=== PATIENT | female | born 1945 | race African-American/Black ===

== ENCOUNTER 2016-12-30 23:11 | Emergency (ER) | payer OTHER ==
[~2016-12-30 23:11] MED LIST: ALPHAGAN P0.1 % OPH; ASAB PO; COZAAR100 MG PO; CRESTOR10 PO; DIABETA5 PO; DIOV160 PO; DORZOL/TIMOL1 ML OP; FERROUS SULF325 M1 PO; FLUOROMETHOLONE OPH; GLUCOTROL5 PO; HYZAAR 100/25 T1 TAB PO; INSNOV7030 SC; IRON INJECTION IM; IRON325 MG PO; LANTUS SC; LANTUSCART SC; LEVEMIR SC; NORV25 PO; PRILOSEC10 MG PO; PROTONIX PO; PROTONIX20 MG PO; SPIRO25 PO; TRAVATAN Z0.004 % OPH; [UNRECOGNIZED DRUG - OTHER] OPH
[2016-12-30 23:21] LABS: BASOPHILS 0.5 %; BASOPHILS ABSOLUTE 0.05 10/3/uL (0.0-0.16); EOSINOPHILS 3.4 %; EOSINOPHILS ABSOLUTE 0.37 10/3/uL (0.0-0.53); IMMATURE GRANULOCYTES 0.4 %; IMMATURE GRANULOCYTES ABSOLUTE 0.04 10/3/uL (0.0-0.11); LYMPHOCYTES 12.2 %; LYMPHOCYTES ABSOLUTE 1.31 10/3/uL (0.67-4.30); MEAN CORPUS HGB CONC 34.2 g/dL (32.0-36.0); MEAN CORPUSCULAR HEMOGLOB 32.3 pg (26.0-34.0); MEAN CORPUSCULAR VOLUME 94.6 fL (80-100); MEAN PLATELET VOLUME 13.1 fL (9.2-13.0); MONOCYTES 3.4 %; MONOCYTES ABSOLUTE 0.37 10/3/uL (0.21-1.20); NEUTROPHILS 80.1 %; NEUTROPHILS ABSOLUTE 8.59 10/3/uL (2.02-8.40); PLATELET COUNT 183 10/3/uL (150-400); RBC DISTRIBUTION WIDTH 12.8 % (12.0-16.0); RED CELL COUNT 3.71 10/6/uL (4.0-5.6); WHITE BLOOD CELLS 10.7 10/3/uL (4.5-10.5)
[2016-12-30 23:24] LABS: ER CBC TAT 0 Hrs 09 MinsNP; HEMATOCRIT 35.1 % (36.0-48.0); MANUAL DIFF NO %
[2016-12-30 23:41] LABS: ALBUMIN 3.5 G/DL (3.5-5.0); BUN (BLOOD UREA NITROGEN) 21 MG/DL (6-23); CALCIUM, SERUM 9.1 MG/DL (8.5-10.4); CHLORIDE, SERUM 108 MMOL/L (96-112); CREATININE 2.28 MG/DL (0.55-1.02); GFR AFRICAN AMERICAN 24 ML/MIN (>=60); GFR NON AFRICAN AMERICAN 21 ML/MIN (>=60); GLOBULIN 3.6 G/DL (2.5-4.1); POTASSIUM, SERUM 4.6 MMOL/L (3.5-5.3); SGPT(ALT) 14 U/L (5-65); SODIUM, SERUM 139 MMOL/L (135-148); TOTAL BILIRUBIN 0.3 MG/DL (0-1.2); TOTAL PROTEIN 7.1 G/DL (6.0-8.5)
[2016-12-30 23:42] LABS: ALKALINE PHOSPHATASE 137 U/L (45-117); CO2 (CARBON DIOXIDE) 22 MMOL/L (24-34); GLUCOSE, SERUM 298 MG/DL (60-99)
[2016-12-30 23:43] LABS: SGOT(AST) 18 U/L (5-40)
[2016-12-31 00:10] LABS: ASCORBIC ACID (UR NOT ORDER) NEG (NEG); BILIRUBIN, URINE NEGATIVE (NEG); ER URINALYSIS TAT 0 Hrs 07 Mins; KETONE, URINE NEGATIVE (NEG); LEUKOCYTE ESTERASE(NOT OR NEG (NEG); NITRITE (URINE) NEG (NEG); WBC (NOT ORDERED) (RFLEX) 7 (0-5)
[2017-05-21] MEDS ORDERED: ARICEPT5 PO (00:10)
[2017-05-21] MEDS ORDERED: HALF81 PO (00:11)
[2017-05-21] MEDS ORDERED: TRAVATAN Z 0.004% OPH (00:11)
[2017-05-21] MEDS ORDERED: ALPHAGAN P0.1 % OPH (00:11)
[2017-05-21] MEDS ORDERED: COZ25 PO (00:13)
[2017-05-21] MEDS ORDERED: TRESIBA FL200 UNIT/1 SC (00:13)
[2017-05-21] MEDS ORDERED: NORV25 PO (00:17)
[2017-05-21] MEDS ORDERED: ZOCOR10 PO (00:17)
[2017-05-21] MEDS ORDERED: VITAMIN D31000 UNIT PO (00:18)
[2017-05-21] MEDS ORDERED: OYST-CAL500 MG PO (00:19)
[2017-05-21] MEDS ORDERED: FERROUS SULF325 M1 PO (00:19)
[2017-05-25] MEDS ORDERED: REG5 PO (14:38)
[2017-05-25] MEDS ORDERED: LOP25 PO (14:39)
[2017-05-25] MEDS ORDERED: PROTONIX PO (14:39)
[2017-05-25] MEDS ORDERED: FLORASTOR250 MG PO (14:40)
[2017-05-25] MEDS ORDERED: SUCR PO (14:41)
[2017-05-25] MEDS ORDERED: LANTUS SQ (14:44)
== END 2016-12-31 01:50 | disposition home or self-care (01) ==
LOC: ER 23:11
PROVIDERS: Nurse Practitioner Acute Care
DX: M79.1 Myalgia (principal); E11.65 Type 2 diabetes mellitus with hyperglycemia; E11.22 Type 2 diabetes mellitus with diabetic chronic kidney disease; I12.9 Hypertensive chronic kidney disease with stage 1 through stage 4 chronic kidney disease, or unspecified chronic kidney disease; N18.9 Chronic kidney disease, unspecified; K21.9 Gastro-esophageal reflux disease without esophagitis; Z85.53 Personal history of malignant neoplasm of renal pelvis; Z88.8 Allergy status to other drugs, medicaments and biological substances; Z79.899 Other long term (current) drug therapy; Z79.82 Long term (current) use of aspirin; Z79.4 Long term (current) use of insulin
CPT/HCPCS: 71010; 80053; 81001; 85025; 99285